=== PATIENT | male | born 1940 | race Caucasian/White ===

== ENCOUNTER 2016-03-06 07:20 | Outpatient (CLI) | payer MEDICARE, OTHER ==
[~2016-03-06] VITALS: Ht 175.3 cm; Wt 82.8 kg
--- NOTE | ~2016-03-06 | HEMODYNAMI ---
PATIENT:ABBEY BRIDGES MEDICAL RECORD: [id number] : 38 LOCATION:D.CAT ADMISSION DATE: 03/06/16 Generatedon:03/06/201610:38 Patient name: ABBEY BRIDGES Patient #: [id number] : 1940 Date of study: 03/06/2016 Page: Of Hemodynamic Procedure Report Patient Data Patient Demographics Procedure consent was obtained First Name: ABBEY Gender: Male Last Name: YULIANA : 1940 Middle Initial: CARIAL Age: 75 year(s) Patient #: [id number] Race: SSN: [id number] Additional ID: [id number] Contact details Address: [address] [place] [address] State: [place] City: [place] Zip code: [address] Past Medical History Allergies: No known allergies Admission Admission Data Admission Date: 03/06/2016 Admission Time: 7:20 Lab Results Lab Result Date: 03/02/2016 Lab Result Time: 0:00 Biochemistry Name Units Result Min Max BUN mg/dl 12 --(-*--)-- 7 18 Creatinine mg/dl 1.2 --(---*)-- 0.6 1.3 CBC Name Units Result Min Max Hemoglobin g/dl 15.1 --(-*--)-- 13.5 17.5 Procedure Procedure Types Cath Procedure PCI Procedure Coronary Stent Initial Procedure Description Procedure Date Procedure Date: 03/06/2016 Procedure Start Time: 10:25 Procedure End Time: 10:36 Procedure Staff Name Function Osito Salinas MD Performing Physician Faye Lieberman RT Scrub Heide Grant RN Nurse Vadim Vargas RT Pulmonary Care Nurse Marion Rodas RT Monitor Procedure Data Cath Procedure Fluoroscopy Diagnostic fluoroscopy Total fluoroscopy Time: 2.5 time: 2.5 min min Diagnostic fluoroscopy Total fluoroscopy dose: 199 dose: 199 mGy mGy Contrast Material Contrast Material Type Amount (ml) Isovue 300 49 Entry Location Entry Primary Successful Side Size Upsize Upsize Entry Closure Succes sful Closure Location (Fr) 1 (Fr) 2 (Fr) Remarks Device Remarks Femoral Right 6 Fr Exoseal artery Short Estimated blood loss: 10 ml Procedure Complications No complications Procedure Medications Medication Administration Route Dosage Oxygen NC 2 l/min Benadryl I.V. 50 mg Lidocaine 2% added to field 20 Heparin Flush Bag added to field 2 bags (1000units/500ml NS) 0.9% NaCl I.V. 100 ml/hr Versed I.V. 1 mg Fentanyl I.V. 50 mcg Heparin Bolus I.V. 4000 units Versed I.V. 1 mg Fentanyl I.V. 50 mcg Hemodynamics Rest HGB: 15.1 (g/dl) Heart Rate: 55 (bpm) Snapshots Pre Cath Intra NCS Post Cath Vital Signs Time Heart Resp SPO2 NIBP (mmHg) Rhythm Pain Sedation Rate (ipm) (%) Status Level (bpm) 10:13:46 53 17 96 130/76(106) NSR 0 (11) 10(A) , No pain 10:18:04 58 15 95 115/74(105) NSR 0 (11) 10(A) , No pain 10:22:16 56 15 94 119/75(99) NSR 0 (11) 10(A) , No pain 10:26:32 54 16 97 115/65(95) NSR 0 (11) 9(A) , No pain 10:30:46 60 17 94 128/69(103) NSR 0 (11) 9(A) , No pain 10:35:00 71 18 96 121/71(100) NSR 0 (11) 9(A) , No pain 10:37:01 65 17 97 123/74(98) NSR 0 (11) 10(A) , No pain Medications Time Medication Route Dose Verified Delivered Reason Notes Effectiveness by by 10:13:09 Oxygen NC 2 Osito Rojasie used for l/min Rita Grant crop production advisor 10:13:15 Benadryl I.V. 50 mg Osiot Jaeger used for Rita Grant crop production advisor 10:19:34 Lidocaine 2% added 20ml Osito Mcneill for local to vial Rita Salinas MD anesthetic field 10:19:40 Heparin Flush added 2 Osito Osito used for Bag to bags Rita Salinas MD procedure (1000units/500ml field NS) 10:19:49 0.9% NaCl I.V. 100 Osito Buffie Per physician ml/hr Rita Grant RN 10:24:27 Versed I.V. 1 mg Osito Buffie for sedation Rita Grant RN 10:24:34 Fentanyl I.V. 50 Osito Buffie for sedation mcg Rita Grant RN 10:26:14 Versed I.V. 1 mg Osito Buffie for sedation Rita Grant RN 10:26:18 Fentanyl I.V. 50 Osito Buffie for sedation mcg Rita Grant RN 10:28:17 Heparin Bolus I.V. 4000 Osito Buffie for verifi ed units Rita Grant RN anticoagulation with dr salinas Procedure Log Time Note 9:55:48 Diagnostic Cath Status : Elective 10:08:20 ACC Patient presents with Stable Angina CCS Anginal Class 2--Slight limitation of ordinary activity. 10:08:25 Vadim WOODWARD(R) sent for patient. Start room use. 10:08:26 Time tracking: Regular hours 10:08:32 Plan of Care:Hemodynamics will remain stable., Cardiac rhythm will remain stable., Comfort level will be maintained., Respiratory function will remain adequate., Patient/ family verbilizes understanding of procedure., Procedure tolerated without complication., Recovers from procedure without complications.. 10:08:54 Patient received from Outpatients to CCL 2 Alert and oriented. Tansferred to table in Supine position. 10:08:56 Warm blankets applied, and jose hugger turned on for patient comfort. 10:08:58 Correct patient and procedure confirmed by team. 10:09:01 Signed procedure consent form obtained from patient. 10:10:41 H&P Date Dictated: 03/06/2016 Within 30 days and on chart., H&P Addendum completed by physician on day of procedure. (MUST COMPLETE FOR ALL OUTPATIENTS). 10:10:44 Pre-procedure instructions explained to patient. 10:10:46 Family in waiting room. 10:10:49 Patient NPO since Midnight. 10:11:04 Patient allergic to No known allergies 10:11:08 Is the patient allergic to Iodine/contrast media? No. 10:11:14 Is patient on blood thinner?Yes 10:11:20 ACC The patient was administered the following blood thiners within the last 24 hours: ACCPlavix 10:11:37 Patient diabetic? No. 10:11:40 Snore? Yes 10:11:45 Sleep apnea? No 10:11:49 Opens mouth fully? Yes 10:11:50 Sticks out tongue? Yes 10:11:58 Dentures? Yes out 10:12:06 Patient pain scale 0/10 ?. 10:12:30 IV patent on arrival in right forearm with 0.9% NaCl at [facility]. 10:12:36 ECG and BP/O2 sat monitors applied to patient. 10:12:37 Vital chart was started 10:12:39 Baseline sample Acquired. 10:12:46 Rhythm: sinus rhythm 10:12:48 Full Disclosure recording started 10:13:09 Oxygen 2 l/min NC was given by Heide Grant RN; used for procedure; 10:13:15 Benadryl 50 mg I.V. was given by Heide Grant RN; used for procedure; 10:16:09 Right groin area was prepped with chlora-prep and draped in sterile fashion 10:16:11 Alarms reviewed by R. N. 10:16:12 Sharps counted by scrub and verified by R.N. 10:16:14 Physician paged 10:16:16 Physician arrived 10:16:30 Use device set Femoral PCI 10:16:32 Acist Syringe opened to sterile field. 10:16:33 Acist Hand Control opened to sterile field. 10:16:33 Bag Decanter opened to sterile field. 10:16:34 Cardinal Cath Pack opened to sterile field. 10:16:35 Terumo 6Fr Aguila Sheath opened to sterile field. 10:16:35 St Abdiaziz 260cm J .035 wire opened to sterile field. 10:16:37 Merit BasixCompak Inflation Kit opened to sterile field. 10:16:38 Acist Manifold opened to sterile field. 10:16:40 Tegaderm 4 x 4 opened to sterile field. 10:16:51 Coley Whisper J 300cm 0.014 guide wire opened to sterile field. 10:19:34 Lidocaine 2% 20ml vial added to field was given by Osito Salinas MD; for local anesthetic; 10:19:40 Heparin Flush Bag (1000units/500ml NS) 2 bags added to field was given by Osito Salinas MD; used for procedure; 10::49 0.9% NaCl 100 ml/hr I.V. was given by Heide Grant RN; Per physician; ::42 --------ALL STOP TIME OUT------ 10::43 Final Timeout: patient, procedure, and site verified with staff and physician. All members of the team are in agreement. 10::45 Right groin site verified by team. 10::49 Physical assessment completed. ASA score P 2 - A patient with mild systemic disease as per Osito Salinas MD. 10::52 Sedation plan: IV Moderate Sedation Versed, Fentanyl 10:22:08 Procedure started. 10::27 Versed 1 mg I.V. was given by Heide Grant RN; for sedation; 10:24:29 Zero performed for pressure channel P1 10::34 Fentanyl 50 mcg I.V. was given by Heide Grant RN; for sedation; 10::45 Zero performed for pressure channel P1 10::53 Zero performed for pressure channel P1 10:25:10 Local anesthetic to right femoral artery with Lidocaine 2% by Osito Salinas MD.INITIAL ACCESS ONLY 10:25:22 A 6 Fr Short sheath was inserted into the Right Femoral artery 10:25:41 Medtronic Launcher 6Fr AR 2.0 guide catheter opened to sterile field. 10:26:14 Versed 1 mg I.V. was given by Heide Grant RN; for sedation; 10::18 Fentanyl 50 mcg I.V. was given by Heide Grant RN; for sedation; 10::42 PCI Cath status Elective 10::53 6 Fr AR 2 guide catheter was inserted over the wire 10:27:15 Whisper wire advanced. 10:28:17 Heparin Bolus 4000 units I.V. was given by Heide Grant RN; for anticoagulation; verified with dr salinas 10::03 Inflation Number: 1 A Medtronic Resolute 2.5 X 18 stent was prepped and advanced across the Dist RCA. The stent was deployed at 13 RIO for 0:10 (min:sec). 10:31:36 Cordis 6Fr Exoseal opened to sterile field. 10:31:53 ACC Post-intervention JUAN PABLO Flow is 3. 10:31:54 Stent catheter was removed intact over wire. 10:31:56 Wire removed. 10:31:57 Guide catheter removed. 10:32:15 Sheath removed intact; hemostasis achieved with Exoseal to the Right Femoral artery. 10:32:18 Procedure ended.(Physican Out) 10:32:30 Fluoroscopy time 02.50 minutes. 10:32:37 Fluoroscopy dose: 199 mGy 10:32:37 Flurop Dose total: 199 10:32:45 Contrast amount:Isovue 300 49ml. 10:34:57 Post-op/insertion site Right Femoral artery dressed using a 4 x 4 and Tegaderm. 10:35:00 Post Procedure Pulses reassessed and unchanged 10:35:07 Post-procedure physical assessment completed. ASA score P 2 - A patient with mild systemic disease as per Osito Salinas MD. 10:35:11 Post procedure rhythm: unchanged. 10:35:14 Estimated blood loss: 10 ml 10:35:16 Post procedure instruction explained to patient.Patient verbalizes understanding. 10:35:22 Procedure and supply charges have been captured, reviewed, submitted and are correct. 10:35:50 Procedure Complication : No complications 10:35:53 Vital chart was stopped 10:35:58 See physician's report for complete and final results. 10:36:09 Report given to Post Procedure Room. 10:36:18 Patient transfered to Post Procedure Room with Bed. 10:36:35 Procedure ended. 10:36:35 Full Disclosure recording stopped 10:36:50 End room use (Document Last) Intervention Summary Intervention Notes Time ActionType Lesion and Equipment Action# Pressure Duration Attributes Used 10:31:03 Place stent Dist RCA Medtronic 1 13 00:10 Resolute 2.5 X 18 stent Device Usage Item Name Manufacture Quantity Catalog Hospital Part Current Minimal Lot# / Number Charge Number Stock Stock Serial# Code Acist Acist 1 08577 [id number] 293400 415874 20 Syringe Medical Systems Inc Acist Hand Acist 1 83169 362412 486298 443999 5 Control Medical Systems Inc Bag Microtek 1 2002S 109655 46828 702465 5 RETC Inc. Cardinal Cardinal [address] 223249 37208 249199 5 Sportody Terumo 6Fr Terumo 1 SAT913 312244 394207 019124 [address] Abdiaz[address] St Abdiaziz 1 649292 210150 260780 431383 30 260cm J .035 wire Merit Merit 1 [id number] 879507 833479 587815 15 BasharJobs Medical Inflation Kit Acist Acist 1 11353 578542 415862 833958 5 Restore Flow Allografts Systems Inc Tegaderm 4 3M 1 1626W 385326 885673 131091 5 x 4 Coley Coley 1 [id number] 052676 429615 025387 5 Whisper J Vascular 300cm 0.014 guide wire Medtronic Medtronic 1 [id number] 596841 97619 618267 1 Launcher 6Fr AR 2.0 guide catheter Medtronic Medtronic 1 [id number] 960261 104231 7 [id number] Resolute 2.5 X 18 stent Cordis 6Fr Cardinal 1 EX600 143063 275829 866318 10 [facility] [employer] Signature Audit [place] Stage Time Signature Unsigned Intra-Procedure 03/06/2016 Marion Rodas 10:38:44 AM RT(R) Signatures Monitor : Marion Rodas Signature : RT Date : Time : [place] [id number] [facility] [place] [address]
--- NOTE | ~2016-03-06 | HEMODYNAMI ---
PATIENT:ABBEY BRIDGES MEDICAL RECORD: [id number] : 38 LOCATION:[facility] D.2118 ADMISSION DATE: 03/06/16 Generatedon:03/07/201610:35 Patient name: ABBEY BRIDGES Patient #: [id number] : 1940 Date of study: 03/07/2016 Page: Of Hemodynamic Procedure Report Patient Data Patient Demographics Procedure consent was obtained First Name: ABBEY Gender: Male Last Name: YULIANA : 1940 Middle Initial: CARIAL Age: 75 year(s) Patient #: [id number] Race: SSN: [id number] Additional ID: [id number] Contact details Address: [address] [place] [address] State: [place] City: [place] Zip code: [address] Past Medical History Allergies: No known allergies Admission Admission Data Admission Date: 03/06/2016 Admission Time: 7:20 Arrival Date: 03/06/2016 Arrival Time: 7:20 Admit Source: Other Insurance Payor: Medicare Room #: D.2118 Height (in.): 69 BSA: 2.11 (m2) Height (cm.): 175.26 BMI: 31.01 (kg/m2) Weight (lbs.): 210 Weight (kg.): 95.25 Lab Results Lab Result Date: 03/07/2016 Lab Result Time: 0:00 Biochemistry Name Units Result Min Max BUN mg/dl 14 --(--*-)-- 7 18 Creatinine mg/dl 1.1 --(--*-)-- 0.6 1.3 CBC Name Units Result Min Max Hemoglobin g/dl 15.4 --(-*--)-- 13.5 17.5 Procedure Procedure Types Cath Procedure PCI Procedure Coronary Stent Initial Procedure Description Procedure Date Procedure Date: 03/07/2016 Procedure Start Time: 10:22 Procedure End Time: 10:33 Procedure Staff Name Function Osito Salinas MD Performing Physician Marion WOODWARD Scrub Ruchi Orellana RN Nurse Faye Lieberman RT Monitor Indication Angina Procedure Data Cath Procedure Fluoroscopy Diagnostic fluoroscopy Total fluoroscopy Time: 2.7 time: 2.7 min min Diagnostic fluoroscopy Total fluoroscopy dose: dose: 197.69 mGy 197.69 mGy Contrast Material Contrast Material Type Amount (ml) Isovue 370 48 Entry Location Entry Primary Successful Side Size Upsize Upsize Entry Closure Succes sful Closure Location (Fr) 1 (Fr) 2 (Fr) Remarks Device Remarks Femoral Left 6 Fr Vascade artery Short Closure System Estimated blood loss: 5 ml Procedure Complications No complications Procedure Medications Medication Administration Route Dosage Oxygen NC 2 l/min Heparin Flush Bag added to field 2 bags (1000units/500ml NS) Lidocaine 2% added to field 20 Versed I.V. 1 mg Fentanyl I.V. 50 mcg Versed I.V. 1 mg Fentanyl I.V. 50 mcg Heparin Bolus I.V. 4000 units Hemodynamics Rest BSA: 2.11 (m2) HGB: 15.4 (g/dl) O2 Consumption: Estimated: 228.02 (ml/min) O2 Co nsumption indexed: Estimated:108.07 (ml/min/m) Heart Rate: 52 (bpm) Snapshots Pre Cath Intra NCS Post Cath Vital Signs Time Heart Resp SPO2 NIBP (mmHg) Rhythm Pain Sedation Rate (ipm) (%) Status Level (bpm) 10:03:03 49 16 99 145/80(120) SB 0 (11) 10(A) , No pain 10:07:29 51 14 98 150/80(123) SB 0 (11) 10(A) , No pain 10:11:47 50 16 97 144/76(117) SB 0 (11) 10(A) , No pain 10:16:01 50 16 96 133/83(111) SB 0 (11) 10(A) , No pain 10:20:17 53 18 96 136/83(107) SB 0 (11) 10(A) , No pain 10:24:33 53 16 97 151/99(118) SB 0 (11) 9(A) , No pain 10:28:55 50 16 96 142/77(111) SB 0 (11) 9(A) , No pain 10:33:30 52 17 97 149/88(110) SB 0 (11) 9(A) , No pain Medications Time Medication Route Dose Verified Delivered Reason Notes Effectiveness by by 10:02:01 Oxygen NC 2 Osito Ruchi Per physician l/min Rita Orellana RN 10:02:11 Heparin Flush added 2 Osito Mcneill used for Bag to bags Rita Salinas MD procedure (1000units/500ml field NS) 10:02:17 Lidocaine 2% added 20ml Osito Mcneill used for to vial Rita Salinas MD procedure field 10:19:08 Versed I.V. 1 mg Osito Ruchi for sedation Rita Orellana RN 10:19:14 Fentanyl I.V. 50 Osito Ruchi for sedation mcg Rita Orellana RN 10:22:13 Versed I.V. 1 mg Osito Ruchi for sedation Rita Orellana RN 10:22:16 Fentanyl I.V. 50 Osito Ruchi for sedation mcg Rita Orellana RN 10:23:30 Heparin Bolus I.V. 4000 Osito Ruchi for dose units Rita Orellana RN anticoagulation verified wtih dr salinas Procedure Log Time Note 9:40:39 Marion Rodas RT(R) sent for patient. Start room use. 9:51:02 Informed consent obtained and on chart 9:51:08 Diagnostic Cath Status : Elective 9:51:33 Indication : Angina 9:53:31 Arrival Date: 03/06/2016 7:20:00 AM 9:53:39 Insurance Payor : Medicare 9:53:40 Admit Source: Other 9:54:32 Lab Result : Hemoglobin 15.4 g/dl 9:54:32 Lab Result : BUN 14 mg/dl 9:54:32 Lab Result : Creatinine 1.1 mg/dl 9:54:50 Time tracking: Regular hours 9:54:55 Plan of Care:Hemodynamics will remain stable., Cardiac rhythm will remain stable., Comfort level will be maintained., Respiratory function will remain adequate., Patient/ family verbilizes understanding of procedure., Procedure tolerated without complication., Recovers from procedure without complications.. 9:55:01 Patient received from Med II to CCL 2 Alert and oriented. Tansferred to table in Supine position. 9:55:03 Warm blankets applied, and jose hugger turned on for patient comfort. 9:55:04 Correct patient and procedure confirmed by team. 9:55:05 ECG and BP/O2 sat monitors applied to patient. 10:01:46 Vital chart was started 10:02:01 Oxygen 2 l/min NC was given by Ruchi Orellana RN; Per physician; 10:02:11 Heparin Flush Bag (1000units/500ml NS) 2 bags added to field was given by Osito Salinas MD; used for procedure; 10:02:17 Lidocaine 2% 20ml vial added to field was given by Osito Salinas MD; used for procedure; 10:03:58 Baseline sample Acquired. 10:04:01 Rhythm: sinus rhythm 10:04:03 Full Disclosure recording started 10:04:08 H&P Date Dictated: 03/06/2016 Within 30 days and on chart.. 10:04:09 Pre-procedure instructions explained to patient. 10:04:10 Pre-op teaching completed and patient verbalized understanding. 10:04:11 Family in waiting room. 10:04:12 Patient NPO since Midnight. 10:04:18 Is the patient allergic to Iodine/contrast media? No. 10:04:20 Was the patient premedicated? No 10:04:21 Is patient on blood thinner?Yes 10:04:23 ACC The patient was administered the following blood thiners within the last 24 hours: ACCPlavix 10:04:53 Patient diabetic? No. 10:04:56 Previous problem with sedation/anesthesia? No ? 10:05:03 Snore? Yes 10:05:04 Sleep apnea? No 10:05:05 Deviated septum? No 10:05:07 Opens mouth fully? Yes 10:05:08 Sticks out tongue? Yes 10:05:14 Airway obstruction? No ? 10:05:20 Dentures? Yes out 10:07:20 Pre procedure: right dorsailis pedis pulse 1+ Palpable, but thready & weak; easily obliterated 10:07:23 Patient pain scale 0/10 ?. 10:07:29 IV patent on arrival in left forearm with 0.9% NaCl at [facility]. 10:07:34 Lab results completed and on chart. 10:07:51 Left groin area was prepped with chlora-prep and draped in sterile fashion 10:07:52 Alarms reviewed by R. N. 10:07:53 Sharps counted by scrub and verified by R.N. 10:11:36 Zero performed for pressure channel P1 10:11:42 Zero performed for pressure channel P1 10:11:52 Zero performed for pressure channel P1 10:15:23 Use device set Femoral PCI 10:15:25 Acist Syringe opened to sterile field. 10:15:25 Acist Hand Control opened to sterile field. 10:15:26 Bag Decanter opened to sterile field. 10:15:26 Cardinal Cath Pack opened to sterile field. 10:15:27 Terumo 6Fr [place] Sheath opened to sterile field. 10:15:27 St Abdiaziz 260cm J .035 wire opened to sterile field. 10:15:28 Merit BasixCompak Inflation Kit opened to sterile field. 10:15:47 Acist Manifold opened to sterile field. 10:15:48 Tegaderm 4 x 4 opened to sterile field. 10:18:19 Physician arrived 10:18:20 --------ALL STOP TIME OUT------ 10:18:20 Final Timeout: patient, procedure, and site verified with staff and physician. All members of the team are in agreement. 10:18:24 Left groin site verified by team. 10:18:28 Physical assessment completed. ASA score P 2 - A patient with mild systemic disease as per Osito Salinas MD. 10:18:32 Sedation plan: IV Moderate Sedation Versed, Fentanyl 10:18:59 Cordis 6FR XBLAD 3.5 guide catheter opened to sterile field. 10:19:00 Coley Whisper J 300cm 0.014 guide wire opened to sterile field. 10:19:08 Versed 1 mg I.V. was given by Ruchi Orellana RN; for sedation; 10:19:14 Fentanyl 50 mcg I.V. was given by Ruchi Orellana RN; for sedation; 10:22:13 Versed 1 mg I.V. was given by Ruchi Orellana RN; for sedation; 10:22:16 Fentanyl 50 mcg I.V. was given by Ruchi Orellana RN; for sedation; 10:22:38 Procedure started. 10:22:43 Local anesthetic to left femerol artery with Lidocaine 2% by Osito Salinas MD.INITIAL ACCESS ONLY 10:22:55 A 6 Fr Short sheath was inserted into the Left Femoral artery 10:23:12 6 Fr xblad 3.5 guide catheter was inserted over the wire 10:23:30 Heparin Bolus 4000 units I.V. was given by Ruchi Orellana RN; for anticoagulation; dose verified [facility] dr salinas 10:24:32 whisper wire advanced. 10:24:59 Coley Whisper J 300cm 0.014 guide wire opened to sterile field. 10:26:15 one wire down lad, one down diag 10:26:39 Inflation number: 1 A [place] 2.0 X 15 balloon was prepped and advanced across the 1st Diag, then inflated to 11 RIO for 0:10 (min:sec). 10:28:40 Inflation Number: 1 A [place]u [place] Resolute 2.25 X 18 Stent was prepped and advanced across the 1st Diag. The stent was deployed at 11 RIO for 0:10 (min:sec). 10:30:23 Both wires removed 10:30:43 Stent catheter was removed intact over wire. 10:30:44 Guide catheter removed. 10:30:56 Vascade 6/7 Fr Closure Device opened to sterile field. 10:31:29 Sheath removed intact; hemostasis achieved with Vascade Closure System to the Left Femoral artery. 10:31:34 Procedure ended.(Physican Out) 10:31:57 Fluoroscopy time 02.70 minutes. 10:32:04 Fluoroscopy dose: 197.69 mGy 10:32:04 Flurop Dose total: 197.69 10:32:30 Contrast amount:Isovue 370 48ml. 10:32:32 Sharps counted by scrub and verified by R.N. 10:32:33 Insertion/operative site no bleeding no hematoma. 10:32:36 Post-op/insertion site Left Femoral artery dressed using a 4 x 4 and Tegaderm. 10:32:42 Post left femerol artery:stable 10:32:43 Post Procedure Pulses reassessed and unchanged 10:32:46 Post procedure rhythm: unchanged. 10:32:49 Estimated blood loss: 5 ml 10:32:50 Post procedure instruction explained to patient.Patient verbalizes understanding. 10:32:51 Patient needs reinforcement of post procedure teaching. 10:33:00 Procedure type changed to Cath procedure, PCI procedure, Coronary Stent Initial 10:33:01 Procedure and supply charges have been captured, reviewed, submitted and are correct. 10:33:11 Procedure Complication : No complications 10:33:13 Vital chart was stopped 10:33:14 See physician's report for complete and final results. 10:33:20 Report given to [facility]. 10:33:23 Patient transfered to [facility] II with Stretcher. 10:33:25 Procedure ended. 10:33:25 Full Disclosure recording stopped 10:33:33 ACC-PCI Only Patient was given prescriptions, or instructed by Osito Salinas MD to start/continue the following medications upon discharge: Plavix 10:33:35 End room use (Document Last) 10:35:23 Patient Height : 175.26 cm 10:35:27 Patient Weight : 95.25 kg Intervention Summary Intervention Notes Time ActionType Lesion and Equipment Action# Pressure Duration Attributes Used 10:26:39 Inflate 1st Diag [place] 1 11 00:10 balloon Sci [place] 2.0 X 15 balloon 10:28:40 [address] stent 1st Diag Medtronic 1 11 00:10 Resolute 2.25 X 18 Stent Device Usage Item Name Manufacture Quantity Catalog Number Hospital Part Current Mini mal Lot# / Charge Number Stock Stock Serial# Code Acist Acist 1 66363 236262 438755 [id number] 20 Syringe Medical Systems Inc Acist Hand Acist 1 34740 054627 545831 108929 5 Control Medical Systems Inc Bag Microtek 1 2002S 640229 42972 004649 5 Universal Robotics Medical Inc. Cardinal Cardinal 1 [id number] 349951 78739 196831 5 Cath Pack Health Terumo 6Fr Terumo 1 [id number] 159139 992617 890696 [address] Abdiaziz 1 974289 336992 546326 760770 30 260cm J .035 wire Merit Merit 1 [id number] 590505 308323 894785 15 [email or web address] Medical Inflation Kit Acist Acist 1 17097 263737 174575 993418 5 Manifold Medical Systems Inc Tegaderm 4 3M 1 1626W 626178 314405 881910 5 x 4 Cordis 6FR Cardinal 1 [id number] 513703 730964 828978 10 XBLAD 3.5 Health guide catheter Coley Coley 2 [id number] 194109 440592 398011 5 Whisper J Vascular 300cm 0.014 guide wire [place] Sci Arvada 1 [id number] 782109 717065 562888 1 [id number] Network Physics 2.0 X 15 balloon Medtronic Medtronic 1 [id number] 215269 508603 4 [id number] Resolute 2.25 X 18 Stent Vascade 08/08 Cardiva 1 [id number] 203620 992464 025156 5 Fr Closure Medical, Device Inc. Signature Audit [place] Stage Time Signature Unsigned Intra-Procedure 03/07/2016 Faye Lieberman 10:35:45 AM RT(R) Signatures Monitor : Faye Lieberman RT Signature : Date : Time : [id number] [place] [address]
[~2016-03-06 07:20] MED LIST: BAYER CHEWABLE81 MG PO; COZAAR100 MG PO; HYTRIN10 MG PO; NIFEDIPINE ER30 MG; OMEPRAZOLE20 M1 PO
[2016-03-06 07:56] LABS: BASOPHILS 0.2 % (0.0-2.0); EOSINOPHILS 2.5 % (0-7); HEMOGLOBIN 15.4 g/dL (13.5-17.5); IMMATURE GRANULOCYTES 0.1 % (0-5); LYMPHOCYTES 27.2 % (15-50); MCH 29.1 pg (26.0-34.0); MCHC 32.8 g/dL (31.0-37.0); MCV 88.8 fL (80.0-100.0); MEAN PLATELET VOLUME 11.3 fL (7.4-10.4); MONOCYTES 7.9 % (2-11); NEUTROPHILS 62.1 % (40-80); PLATELET COUNT 196 10x3/uL (130-400); RBC 5.29 10x6/uL (4.20-6.10); RDW 14.7 % (11.5-14.5); WBC 8.4 10x3/uL (4.8-10.8)
[2016-03-06 08:01] LABS: ANION GAP 11.4 mmol/L (8-16); CALCIUM 9.2 mg/dL (8.5-10.1); CREATININE - SERUM 1.1 mg/dL (0.6-1.3); POTASSIUM - SERUM 4.4 mmol/L (3.5-5.1)
[2016-03-06] MEDS ORDERED: PLAVIX75 MG PO (09:26)
[2016-03-06 09:30] VITALS: BP 128/68; BMI 31.0
[2016-03-06 09:44] VITALS: BP 128/68; BMI 31.0
[2016-03-06 11:03] VITALS: BP 117/66; Ht 175.3 cm; Wt 82.8 kg
[2016-03-06 12:00] VITALS: BP 117/66
--- NOTE | 2016-03-06 13:00 | NUR ---
PT IS ALERT. NO SS OF DISTRESS AT THIS TIME. WILL CONTINUE TO MONTIOE.
[2016-03-06 15:44] VITALS: BP 131/67
[2016-03-06 20:33] VITALS: BP 157/68
[2016-03-07 00:32] VITALS: BP 133/72
[2016-03-07 04:42] VITALS: BP 118/64
--- NOTE | 2016-03-07 06:12 | NUR ---
PT ASSESSMENT COMPLETED PT LAYING IN BED WITH FAMILY IN ROOM AT BEDSIDE RIGHT GROIN ASSESSED NO HEMOTOMA NOTED OR OBSERVED DRESSING C/D/I AND CANSENTS FOR CATH IN AM TO CHART CALLL LIGHT IN REACH SRX2 BED LOW AND LOCKED WILL MONITOR
[2016-03-07 08:00] VITALS: BP 127/69
--- NOTE | 2016-03-07 09:47 | NUR ---
PRE-OPS GIVEN. TO HAND BRAILLE TRANSCRIBER BY BED.
--- NOTE | 2016-03-07 10:54 | NUR ---
BACK FROM MANAGER OF CREATIVE SERVICES. VS WNL. LEFT GROIN STABLE WITHOUT BLEEDING OR HEMATOMA NOTED. WILL MONITOR.
[2016-03-07 12:00] VITALS: BP 131/70
--- NOTE | 2016-03-07 14:37 | NUR ---
IV AND TELEMETRY DCD. BR UP. GROIN STABLE. DC PLANS GIVEN. UNDERSTANDING VOICED. ESCORTED TO CAR BY W/C.
--- NOTE | 2016-03-08 16:23 | DS ---
PATIENT:ABBEY WATSON :38 MEDICAL RECORD: [id number] DISCHARGE SUMMARY ADMISSION DATE: 03/06/16 DISCHARGE DATE: 03/07/16 DATE OF DISCHARGE: 03/07/2016 DIAGNOSES: 1. Angina. 2. Coronary artery disease. 3. Percutaneous transluminal coronary angioplasty stent of the right coronary artery and left anterior descending this admission. 4. Hypertension. 5. Hyperlipidemia. HOSPITAL COURSE: Mr. Watson presents with unstable anginal symptomatology last week. He was found to have 3-vessel coronary artery disease. He underwent successful PTCA stent of the left circumflex last week, now brought back for PTCA stent of the LAD and RCA in a staged fashion. He had these done uneventfully with no further angina. He was discharged home with no change in medications as he is already on aspirin and Plavix. We will follow up with [facility] in 1 month. TRANSINT:[id number] Voice Confirmation ID: [id number] DOCUMENT ID: [id number] HOA HURTADO MD at 1623 CC: [id number] DICTATION DATE: 03/07/16 1034 MILK DELIVERER: 03/07/16 7385 DEP CLI 03/07/16 [id number] [place] [address]
--- NOTE | 2016-03-08 16:23 | OP ---
PATIENT NAME: ABBEY BRIDGES MEDICAL RECORD: [id number] :38 LOCATION:D.CAT ADMISSION DATE: SURGEON: HOA HURTADO MD DATE OF OPERATION: 03/07/2016 PROCEDURES: 1. PTCA stent, LAD diagonal. 2. Selective coronary angiography. INDICATION: Angina and coronary artery disease. PROCEDURE IN DETAIL: After informed consent was obtained and after detailed explanation of risks, benefits as well as alternative therapies, the patient elected to proceed with angiogram and angioplasty. The left femoral area was prepped and draped in normal sterile fashion. Left femoral artery was cannulated via modified Seldinger technique with placement of 6-Kyrgyz sheath. All catheters exchanged through this sheath. FINDINGS: The left anterior descending diagonal has a 95% stenosis. This was addressed with a 2.25 x 18 mm Resolute stent. Result was 0% residual stenosis. OVERALL IMPRESSION: Successful percutaneous transluminal coronary angioplasty stent of the left anterior descending diagonal going from 95% initial stenosis to 0% residual. TRANSINT:[id number] Voice Confirmation ID: [id number] DOCUMENT ID: [id number] HOA HURTADO MD at 1623 CC: [id number] DICTATION DATE: 03/07/16 1035 LICENSING SERVICES CLERK: 03/07/16 1153 DEP CLI 03/07/16 [address] [place] [address]
--- NOTE | 2016-03-08 16:23 | HP ---
PATIENT: ABBEY BRIDGES MEDICAL RECORD: [id number] ACCOUNT: [id number] LOCATION:[facility] : 38 ADMISSION DATE: 03/06/16 HISTORY AND PHYSICAL EXAMINATION ADMITTING DIAGNOSES: 1. Angina. 2. Coronary artery disease. 3. Recent percutaneous transluminal coronary angioplasty stent of the left circumflex with concomitant disease of the right coronary artery. 4. Hypertension. HISTORY OF PRESENT ILLNESS: This is a gentleman who presents with anginal symptomatology, found to have 3-vessel coronary artery disease, underwent successful PTCA stent of the left circumflex. He is now brought back for PTCA stent of the LAD and RCA in a staged fashion. PHYSICAL EXAMINATION: GENERAL APPEARANCE: Well-nourished, well-developed, appears stated age. Level of distress, comfortable. PSYCHIATRIC: Mental status, alert, normal affect. Orientation, oriented to time, place and person. EYES: Lids and conjunctiva, noninjected. No discharge, no pallor. ENT: Lips, teeth, gums, normal dentition. Oropharynx, no cyanosis, no pallor. NECK: Carotid arteries, bilateral normal upstroke, no bruits, no thrills. JUGULAR VEINS: No jugular venous pressure or distention. CERVICAL LYMPH NODES: Nontender, nonenlarged. THYROID: Not enlarged. Nontender. No nodules. LUNGS: Respiratory effort, unlabored. CHEST: Normal curvature. No thoracic deformity. No chest wall tenderness. Percussion, resonant. Auscultation, clear. No wheezes, no rales, no rhonchi. CARDIOVASCULAR: Precordial exam, nondisplaced. No heaves or pericardial thrills. Rate and rhythm, regular. Heart sounds, normal S1, normal S2. No S3, no gallop, no rub. Systolic murmur, not heard. Diastolic murmur, not heard. EXTREMITIES: No cyanosis, no edema. Peripheral pulses, full and equal in all extremities, except as noted. No bruits appreciated. ABDOMEN: Soft, nondistended. Normal aorta. No bruit. Nontender. No masses. Liver, nontender, no hepatomegaly. Spleen, nontender, no splenomegaly. MUSCULOSKELETAL: No joint tenderness. No joint swelling. No erythema. NEUROLOGICAL: Normal gait, normal strength, normal tone. SKIN: Warm and dry. REVIEW OF SYSTEMS: The patient reports easy bruising but reports no swollen glands. The patient reports no fever, no night sweats, no significant weight gain, no significant weight loss. No significant exercise tolerance. The patient reports no dry eyes, no irritation, no vision change. Patient reports no difficulty hearing and no ear pain. Patient reports no frequent nose bleeds or nose and sinus problems. Patient reports on arm pain on exertion. No shortness of breath while lying down. No history of heart murmur. Patient reports no cough, no wheezing or coughing up blood. Patient reports no abdominal pain, no vomiting. Normal appetite. No diarrhea and not vomiting blood. No nausea and no constipation. Patient reports no incontinence. No difficulty urinating. No hematuria. No increased frequency. Patient reports no muscle aches. No weakness, no arthralgias, no back pain. No swelling of the extremities. Patient reports no abnormal mole, no jaundice, no rashes. Reports HISTORY AND PHYSICAL [id number] YULIANA,ABBEY no loss of consciousness. No weakness and no numbness. No seizures, dizziness, or headaches. The patient reports no depression, no sleep disturbance, feeling safe in a relationship and no alcohol abuse. Patient reports on fatigue. Reports no runny nose or sinus pressure. No itching, no hives, and no frequent sneezing. OVERALL IMPRESSION: Anginal symptomatology with 2-vessel coronary artery disease. We will proceed with percutaneous transluminal coronary angioplasty stent of the left anterior descending and right coronary artery. TRANSINT:[id number] Voice Confirmation ID: [id number] DOCUMENT ID: [id number] HOA HURTADO MD at 1623 CC: [id number] DICTATION DATE: 03/06/16910 PERSONAL HEALTH COACH: 03/06/1625 DEP CLI 03/07/16 [facility] [address] [place] [address]
--- NOTE | 2016-03-08 16:23 | OP ---
PATIENT NAME: ABBEY BRIDGES MEDICAL RECORD: [id number] :38 LOCATION:D.CAT ADMISSION DATE: SURGEON: HOA HURTADO MD DATE OF OPERATION: 03/06/2016 PROCEDURES: 1. PTCA stent, RCA. 2. Selective coronary angiography. INDICATION: Angina and coronary artery disease. PROCEDURE IN DETAIL: After informed consent was obtained and after a detailed explanation of risks, benefits as well as alternative therapies, the patient elected to proceed with angiogram and angioplasty. The right femoral area was prepped and draped in normal sterile fashion. The right femoral artery was cannulated via modified Seldinger technique with placement of 6-Korean sheath. All catheters exchanged through this sheath. FINDINGS: The right coronary has 80% stenosis at the distal vessel. This was addressed with a 2.5 x 18 mm Resolute. Result was 0% residual stenosis. OVERALL IMPRESSION: Successful percutaneous transluminal coronary angioplasty stent of the right coronary artery going from 80% initial stenosis to 0% residual. TRANSINT:[id number] Voice Confirmation ID: [id number] DOCUMENT ID: [id number] HOA HURTADO MD at 1623 CC: [id number] DICTATION DATE: 03/06/16 1038 ARCHITECTURAL DRAFTSMAN: 03/06/16 1043 DEP CLI 03/07/[address] [address]
== END 2016-03-07 14:41 | disposition home or self-care (01) ==
LOC: D.M2 07:20 → D.CATH 07:20 → D.M2 10:48 → D.CATH 03-07 14:41
PROVIDERS: Internal Medicine Interventional Cardiology
DX: I25.119 Atherosclerotic heart disease of native coronary artery with unspecified angina pectoris (principal); Z95.5 Presence of coronary angioplasty implant and graft; I10 Essential (primary) hypertension
CPT/HCPCS: C9600 ×2

== ENCOUNTER → 2016-06-01 10:20 | Outpatient (CLI) | payer MEDICARE, OTHER ==
[2016-03-06 11:03] VITALS: BMI 26.9
--- NOTE | ~2016-06-01 | HEMODYNAMI ---
PATIENT:ABBEY BRIDGES MEDICAL RECORD: [id number] : 38 LOCATION:[facility] ADMISSION DATE: 06/01/16 Generatedon:06/01/201614:38 Patient name: ABBEY BRIDGES Patient #: [id number] : 1940 Date of study: 06/01/2016 Page: Of Hemodynamic Procedure Report Patient Data Patient Demographics Procedure consent was obtained First Name: ABBEY Gender: Male Last Name: YULIANA : 1940 [facility] Initial: C Age: 76 year(s) Patient #: [id number] Race: SSN: [id number] Additional ID: [id number] Contact details Address: [address] [place] [address] State: [place] City: [place] Zip code: [address] Past Medical History Allergies: No known allergies Admission Admission Data Admission Date: 06/01/2016 Admission Time: 10:20 Arrival Date: 06/01/2016 Arrival Time: 10:20 Admit Source: Other Insurance Payor: Medicare Height (in.): 69 BSA: 2.11 (m2) Height (cm.): 175.26 BMI: 31.16 (kg/m2) Weight (lbs.): 211 Weight (kg.): 95.71 Lab Results Lab Result Date: 06/01/2016 Lab Result Time: 0:00 Biochemistry Name Units Result Min Max BUN mg/dl 16 --(---*)-- 7 18 Creatinine mg/dl 1 --(--*-)-- 0.6 1.3 CBC Name Units Result Min Max Hemoglobin g/dl 15.3 --(-*--)-- 13.5 17.5 Procedure Procedure Types Cath Procedure Diagnostic Procedure [facility] w/Coronaries PCI Procedure Coronary Stent Initial Miscellaneous Procedures Moderate Sedation up to 45 minutes Procedure Description Procedure Date Procedure Date: 06/01/2016 Procedure Start Time: 14:22 Procedure End Time: 14:33 Procedure Staff Name Function Osito Salinas MD Performing Physician Vadim Vargas RT Scrub Magdalena Hummel RN Nurse Faye Lieberman RT Monitor Procedure Data Cath Procedure Fluoroscopy Diagnostic fluoroscopy Total fluoroscopy Time: 1.9 time: 1.9 min min Diagnostic fluoroscopy Total fluoroscopy dose: 504 dose: 504 mGy mGy Contrast Material Contrast Material Type Amount (ml) Isovue 370 75 Entry Location Entry Primary Successful Side Size Upsize Upsize Entry Closure Reed ccessful Closure Location (Fr) 1 (Fr) 2 (Fr) Remarks Device Remarks Radial Right 6 Fr Mechanical artery Short Compression Estimated blood loss: 5 ml Diagnostic catheters Device Type Used For End Catheter Placement Terumo Optitorque 5Fr LV Angiography Waldo 4.5 catheter Procedure Complications No complications Procedure Medications Medication Administration Route Dosage Oxygen NC 2 l/min Heparin Flush Bag added to field 2 bags (1000units/500ml NS) Lidocaine 2% added to field 20 Radial Cocktail added to field 1 syringe (Verapomil 2mg/Nitro 400mcg/Heparin 1500units) Fentanyl I.V. 50 mcg Versed I.V. 1 mg Radial Cocktail I.A. 1 syringe (Verapomil 2mg/Nitro 400mcg/Heparin 1500units) Fentanyl I.V. 25 mcg Versed I.V. 0.5 mg Heparin Bolus I.V. 4000 units Hemodynamics Rest BSA: 2.11 (m2) HGB: 15.3 (g/dl) O2 Consumption: Estimated: 228.12 (ml/min) O2 Co nsumption indexed: Estimated:108.11 (ml/min/m) Heart Rate: 53 (bpm) Pressure Samples Time Site Value (mmHg) Purpose Heart Use Rate(bpm) 14:24 LV 94/10,12 Snapshot 59 Snapshots Pre Cath Intra NCS Post Cath Vital Signs Time Heart Resp SPO2 NIBP (mmHg) Rhythm Pain Sedation Rate (ipm) (%) Status Level (bpm) 14:11:38 52 19 94 150/79(105) NSR 0 (11) 10(A) , No pain 14:15:58 52 17 96 140/76(109) NSR 0 (11) 10(A) , No pain 14:20:14 51 16 97 142/78(116) NSR 0 (11) 9(A) , No pain 14:24:22 56 18 95 111/64(95) NSR 0 (11) 9(A) , No pain 14:28:34 55 19 96 124/70(95) NSR 0 (11) 9(A) , No pain 14:32:48 58 18 96 127/72(98) NSR 0 (11) 9(A) , No pain Medications Time Medication Route Dose Verified Delivered Reason Note s Effectiveness by by 14:12:56 Oxygen NC 2 l/min Magdalena Magdalena used for Hummel Hummel speeder worker RN 14:13:06 Heparin Flush added 2 bags Magdalena Magdalena used for Bag to Hummel Hummel procedure (1000units/500ml field RN RN NS) 14:13:12 Lidocaine 2% added 20ml Magdalena Magdalena used for to vial Hummel Hummel procedure field RN RN 14:13:20 Radial Cocktail added 1 Magdalena Magdalena used for (Verapomil to syringe Hummel Hummel procedure 2mg/Nitro field RN RN 400mcg/Heparin 1500units) 14:21:39 Fentanyl I.V. 50 mcg Magdalena Magdalena for sedation Hummelmary Hummel RN RN 14:21:45 Versed I.V. 1 mg Magdalena Magdalena for sedation Hummel Estephanie RN RN 14:23:32 Radial Cocktail I.A. 1 Magdalena Osito for (Verapomil syringe Hummel Rita MD vasodilation 2mg/Nitro RN 400mcg/Heparin 1500units) 14:23:37 Fentanyl I.V. 25 mcg Magdalena Magdalena for sedation Hummelmary Hummel RN RN 14:23:42 Versed I.V. 0.5 mg Magdalena Magdalena for sedation Hummel Hummel RN RN 14:28:31 Heparin Bolus I.V. 4000 Magdalena Magdalena for units Hummel Hummel anticoagulation RN neon sign servicer Log Time Note 13:59:08 Informed consent obtained and on chart 13:59:15 Admit Source: Other 13:59:21 Arrival Date: 06/01/2016 10:20:00 AM 13:59:31 Insurance Payor : Medicare 13:59:52 Lab Result : Hemoglobin 15.3 g/dl 13:59:52 Lab Result : Creatinine 1 mg/dl 13:59:52 Lab Result : BUN 16 mg/dl 13:59:57 Diagnostic Cath Status : Elective 14:00:30 Magdalena Hummel RN sent for patient. Start room use. 14:00:31 Time tracking: Regular hours 14:00:35 Plan of Care:Hemodynamics will remain stable., Cardiac rhythm will remain stable., Comfort level will be maintained., Respiratory function will remain adequate., Patient/ family verbilizes understanding of procedure., Procedure tolerated without complication., Recovers from procedure without complications.. 14:02:24 Patient received from ED to CCL 2 Alert and oriented. Tansferred to table in Supine position. 14:02:25 Warm blankets applied, and jose hugger turned on for patient comfort. 14:02:25 Correct patient and procedure confirmed by team. 14:02:26 ECG and BP/O2 sat monitors applied to patient. 14:10:12 Vital chart was started 14:12:56 Oxygen 2 l/min NC was administered by Magdalena Hummel RN; used for procedure; 14:13:06 Baseline sample Acquired. 14:13:06 Heparin Flush Bag (1000units/500ml NS) 2 bags added to field was administered by Magdalena Hummel RN; used for procedure; 14:13:12 Lidocaine 2% 20ml vial added to field was administered by Magdalena Hummel RN; used for procedure; 14:13:20 Radial Cocktail (Verapomil 2mg/Nitro 400mcg/Heparin 1500units) 1 syringe added to field was administered by Magdalena Hummel RN; used for procedure; 14:13:23 Rhythm: sinus rhythm 14:13:25 Full Disclosure recording started 14:13:29 H&P Date Dictated: 06/01/2016 New H&P dictated by physician.. 14:13:30 Pre-procedure instructions explained to patient. 14:13:31 Pre-op teaching completed and patient verbalized understanding. 14:13:32 Family in waiting room. 14:13:33 Patient NPO since Midnight. 14:13:38 Is the patient allergic to Iodine/contrast media? No. 14:13:41 Was the patient premedicated? No 14:14:56 Is patient on blood thinner?Yes 14:14:59 ACC The patient was administered the following blood thiners within the last 24 hours: ACCPlavix 14:15:01 Patient diabetic? No. 14:15:04 Previous problem with sedation/anesthesia? No ? 14:15:05 Snore? Yes 14:15:06 Sleep apnea? No 14:15:07 Deviated septum? No 14:15:07 Opens mouth fully? Yes 14:15:08 Sticks out tongue? Yes 14:15:10 Airway obstruction? No ? 14:15:14 Dentures? Yes in tight 14:15:18 Pre procedure: right dorsailis pedis pulse 1+ Palpable, but thready & weak; easily obliterated 14:15:21 Patient pain scale 0/10 ?. 14:15:24 Modified Olaf's test Radial < 7 seconds 14:15:30 IV patent on arrival in left antecubital with 0.9% NaCl at [facility]. 14:15:33 Lab results completed and on chart. 14:15:37 Right Radial & Right Groin area was prepped with chlora-prep and draped in sterile fashion 14:15:37 Alarms reviewed by R. N. 14:15:38 Sharps counted by scrub and verified by R.N. 14:15:39 Physician arrived 14:15:39 --------ALL STOP TIME OUT------ 14:15:41 Final Timeout: patient, procedure, and site verified with staff and physician. All members of the team are in agreement. 14:15:44 Right Radial & Left Groin site verified by team. 14:15:48 Physical assessment completed. ASA score P 2 - A patient with mild systemic disease as per Osito Salinas MD. 14:15:51 Sedation plan: IV Moderate Sedation Versed, Fentanyl 14:15:56 Use device set Radial Dx 14:15:57 Acist Syringe opened to sterile field. 14:15:57 Medline Cath Pack opened to sterile field. 14:15:58 Bag Decanter opened to sterile field. 14:15:58 Terumo 6Fr Slender Glidesheath opened to sterile field. 14:15:58 St Abdiaziz 260cm J .035 wire opened to sterile field. 14:15:59 Acist Hand Control opened to sterile field. 14:15:59 Acist Manifold opened to sterile field. 14:15:59 Tegaderm 4 x 4 opened to sterile field. 14:16:00 MBrace Wrist Support opened to sterile field. 14:21:39 Fentanyl 50 mcg I.V. was administered by Magdalena Hummel RN; for sedation; 14:21:45 Versed 1 mg I.V. was administered by Magdalena Hummel RN; for sedation; 14:22:12 Zero performed for pressure channel P1 14:22:31 Procedure started. 14:22:40 Local anesthetic to right radial artery with Lidocaine 2% by Osito Salinas MD.INITIAL ACCESS ONLY 14:22:48 A 6 Fr Short sheath was inserted into the Right Radial artery 14:23:32 Radial Cocktail (Verapomil 2mg/Nitro 400mcg/Heparin 1500units) 1 syringe I.A. was administered by Osito Salinas MD; for vasodilation; 14:23:37 Fentanyl 25 mcg I.V. was administered by Magdalena Hummel RN; for sedation; 14::42 Versed 0.5 mg I.V. was administered by Magdalena Hummel RN; for sedation; 14:24:20 A Paradigm Spine Optitorque 5Fr Waldo 4.5 catheter was advanced over the wire and used for LV Angiography. 14:24:27 LV gram done using BAUMANN 14:24:30 Injector settings: Ml/sec: 5, Volume: 15, 14:24:36 EF : 20 % 14:24:41 LCA angiography performed. 14:24:51 Injector settings: Ml/sec: 3, Volume: 6, 14:26:29 RCA angiography performed. 14:26:33 Injector settings: Ml/sec: 3, Volume: 6, 14:26:48 Medtronic Launcher 6Fr AR 1.0 guide catheter opened to sterile field. 14:26:49 Coley Whisper J 300cm 0.014 guide wire opened to sterile field. 14:26:55 1Life HealthcareixCompak Inflation Kit opened to sterile field. 14:27:02 Catheter removed. 14:27:16 6 Fr ar 1 guide catheter was inserted over the wire 14:27:32 whisper wire advanced. 14::55 Wire advanced across lesion. 14::31 Heparin Bolus 4000 units I.V. was administered by Magdalena Hummel RN; for anticoagulation; 14::39 Inflation Number: 1 A Medtronic Resolute 2.5 X 12 stent was prepped and advanced across the Dist RCA. The stent was deployed at 17 RIO for 0:10 (min:sec). 14::55 Stent catheter was removed intact over wire. 14:29:59 Wire removed. 14:30:02 Guide catheter removed. 14:31:43 Terumo TR Band Standard opened to sterile field. 14:31:52 Sheath removed intact; hemostasis achieved with Mechanical Compression to the Right Radial artery. 14:31:55 Procedure ended.(Physican Out) 14:32:10 Fluoroscopy time 01.90 minutes. 14:32:15 Fluoroscopy dose: 504 mGy 14:32:15 Flurop Dose total: 504 14:32:19 Contrast amount:Isovue 370 75ml. 14:32:20 Sharps counted by scrub and verified by R.N. 14:32:24 TR band inflated with 10cc of air. 14:32:25 Insertion/operative site no bleeding no hematoma. 14:32:29 Post right radial artery:stable 14:32:30 Post Procedure Pulses reassessed and unchanged 14:32:33 Post procedure rhythm: unchanged. 14:32:35 Estimated blood loss: 5 ml 14:32:37 Post procedure instruction explained to patient.Patient verbalizes understanding. 14:32:38 Patient needs reinforcement of post procedure teaching. 14:33:08 Procedure type changed to Cath procedure, Diagnostic procedure, LHC, LHC w/Coronaries, PCI procedure, Coronary Stent Initial, Miscellaneous Procedures, Moderate Sedation up to 45 minutes 14:33:10 Procedure and supply charges have been captured, reviewed, submitted and are correct. 14:33:14 Procedure Complication : No complications 14:33:16 Vital chart was stopped 14:33:16 See physician's report for complete and final results. 14:33:20 Report given to Pre/Post Procedure Room. 14:33:22 Patient transfered to Pre/Post Procedure Room with Stretcher. 14:33:24 Procedure ended. 14:33:24 Full Disclosure recording stopped 14:33:58 ACC-PCI Only Patient was given prescriptions, or instructed by Osito Salinas MD to start/continue the following medications upon discharge: Plavix 14:34:05 End room use (Document Last) 14:35:12 Patient Weight : 95.71 kg 14:35:20 Patient Height : 175.26 cm Intervention Summary Intervention Notes Time ActionType Lesion and Equipment Action# Pressure Duration Attributes Used 14:29:39 Place stent Dist RCA Medtronic 1 17 00:10 Resolute 2.5 X 12 stent Device Usage Item Name Manufacture Quantity Catalog Hospital Part Current Minimal Lot# / Number Charge Number Stock Stock Serial# Code Acist Acist 1 30816 664067 379589 274021 20 Syringe Medical Systems Inc Medline Cardinal 1 [id number] 719279 24517 791691 5 Cath Pack Health Bag Microtek 1 2001S [id number] 16869 298664 5 Decanter Medical Inc. Terumo 6Fr Terumo 1 [id number] 583121 866376 839687 [address] Abdiaziz St Abdiaziz 1 001398 872303 033998 257785 30 260cm J .035 wire Acist Hand Acist 1 12258 678821 944097 549530 5 Control Medical Systems Inc Acist Acist 1 64980 420287 904710 979231 5 Manifold Medical Systems Inc Tegaderm 4 3M 1 1626W 402068 062827 933758 5 x 4 MBrace Advanced 1 140-0250-00 729653 27154 002814 5 Wrist Vascular Support Dynamics Terumo Terumo 1 40-5012 373784 871252 835402 5 Optitorque 5Fr Waldo 4.5 catheter Medtronic Medtronic 1 [id number] 641749 77746 874078 1 Launcher 6Fr AR 1.0 guide catheter Coley Coley 1 [id number] 678239 608117 820262 5 Whisper J Vascular 300cm 0.014 guide wire [facility] Merit 1 [id number] 458311 933727 923588 15 BasixCompak Medical Inflation Kit Medtronic Medtronic 1 [id number] 435254 538140 6 [id number] Resolute 2.5 X 12 stent Terumo TR Terumo 1 [id number] 112731 419643 794337 40 Band Standard Signature Audit [place] Stage Time Signature Unsigned Intra-Procedure 06/01/2016 Faye Lieberman 2:38:15 PM RT(R) Signatures Monitor : Faye Lieberman RT Signature : Date : Time : [facility] [address] [place] [address]
[~2016-06-01 10:20] MED LIST changes: +PLAVIX75 MG PO
[2016-06-01 11:12] LABS: BASOPHILS 0.1 % (0.0-2.0); EOSINOPHILS 2.8 % (0-7); HEMATOCRIT 46.9 % (42.0-54.0); HEMOGLOBIN 15.3 g/dL (13.5-17.5); IMMATURE GRANULOCYTES 0.1 % (0-5); LYMPHOCYTES 34.4 % (15-50); MCH 29.3 pg (26.0-34.0); MCHC 32.6 g/dL (31.0-37.0); MCV 89.8 fL (80.0-100.0); MEAN PLATELET VOLUME 11.5 fL (7.4-10.4); MONOCYTES 7.4 % (2-11); NEUTROPHILS 55.2 % (40-80); PLATELET COUNT 224 10x3/uL (130-400); RBC 5.22 10x6/uL (4.20-6.10); RDW 13.8 % (11.5-14.5)
[2016-06-01 11:30] LABS: ALBUMIN 3.9 g/dL (3.4-5.0); ALKALINE PHOSPHATASE 71 U/L (46-116); ALT (SGPT) 28 U/L (10-68); BILIRUBIN - TOTAL 0.42 mg/dL (0.2-1.3); CALC OSMOLALITY 278 mosm/kg (275-300); CALCIUM 9.1 mg/dL (8.5-10.1); CARBON DIOXIDE 25.7 mmol/L (21.0-32.0); CHLORIDE - SERUM 106 mmol/L (98-107); GLUCOSE 101 mg/dL (74-106); POTASSIUM - SERUM 4.5 mmol/L (3.5-5.1); PROTEIN - SERUM 7.3 g/dL (6.4-8.2); SODIUM 139 mmol/L (136-145); UREA NITROGEN 16 mg/dL (7-18); eGFR NON AFRICAN AMERICAN 77 mL/min (90-120)
[2016-06-01 11:40] LABS: CKMB 1.3 U/L (0.0-3.6); CREATINE KINASE 69 UL (21-232); TROPONIN-I < 0.017 ng/mL (0.000-0.060)
[2016-06-01 12:19] LABS: MAGNESIUM - SERUM 1.9 mg/dL (1.8-2.4)
--- NOTE | 2016-06-01 18:42 | NUR ---
1500-TR BAND TO RIGHT WRIST INTACT, NO BLEEDING, CAP REFILL BRISK 1530-NO CHANGES IN TR BAND, VSS
--- NOTE | 2016-06-01 18:51 | NUR ---
1820-TR BAND OFF PER PROTOCOL- BANDAID APPLIED WITH BRACE IN USE, IV D'C WITH CATH TIP INTACT, WRITTEN AND VERBAL INSTRUCTIONS GIVEN TO PT AND . VERBAL UNDERSTANDING NOTED. 1830-D'C VIA WC TO PRIVATE CAR, DENIES FURTHUR NEEDS
--- NOTE | 2016-06-15 10:19 | OP ---
PATIENT NAME: ABBEY BRIDGES MEDICAL RECORD: [id number] :38 LOCATION:[facility] ADMISSION DATE: SURGEON: HOA HURTADO MD DATE OF OPERATION: 06/01/2016 PROCEDURES: 1. PTCA stent RCA. 2. Left heart catheterization. 3. Selective coronary angiography. 4. Left ventriculogram. INDICATION: Angina and coronary artery disease. PROCEDURE: After informed consent was obtained and after detailed explanation of risks, benefits as well as alternative therapies, the patient elected to proceed with angiogram and angioplasty. The right femoral area is prepped and draped in normal sterile fashion. The right femoral artery was cannulated via modified Seldinger technique with placement of 6-Congolese sheath. All catheters exchanged through this sheath. FINDINGS: The left ventriculogram was performed in standard 30-degree BAUMANN view, reveals good cardiac wall motion throughout all segments. Overall ejection fraction estimated 60%. SELECTIVE CORONARY ANGIOGRAPHY: 1. Left main is with no significant angiographic disease. 2. Left anterior descending has previously placed stents, these are widely patent. There is disease in the LAD diagonal, but this is unchanged from previous angiography. 3. Left circumflex has moderate irregularities, but no flow-limiting stenosis. Previously placed stents were widely patent. 4. The right coronary has previously placed stent. This is widely patient; however, there 70%-80% stenosis distally. This is changed from previous angiography. PTCA STENT OF THE RCA: The stent used was a 2.5 x 12 mm Resolute. Result was 0% residual stenosis. OVERALL IMPRESSION: Successful percutaneous transluminal coronary angioplasty stent of the right coronary artery going from 70%-80% initial stenosis to 0% residual. TRANSINT:[id number] Voice Confirmation ID: [id number] DOCUMENT ID: [id number] HOA HURTADO MD at 1019 CC: [id number] DICTATION DATE: 06/01/16 1433 MILL LABORER: 06/01/16 1456 DEP CLI 06/01/[address] [address]
--- NOTE | 2016-06-15 10:19 | HP ---
PATIENT: ABBEY WATSON MEDICAL RECORD: [id number] ACCOUNT: [id number] LOCATION:[facility] : 38 ADMISSION DATE: 06/01/16 HISTORY AND PHYSICAL EXAMINATION ADMITTING DIAGNOSES: 1. Unstable angina. 2. Coronary artery disease, status post 3-vessel PTCA stent, February and March. 3. Hypertension. 4. Hyperlipidemia. HISTORY OF PRESENT ILLNESS: Mr. Watson presents with 2 days of increasing chest pain, quite severe episodes of chest pain last night, status post 3-vessel PTCA stent in late February, early March. His first recurrence of chest pain he has had since then. His EKG, sinus bradycardia, but no acute ST-T abnormalities. PHYSICAL EXAMINATION: GENERAL APPEARANCE: Well-nourished, well-developed, appears stated age. Level of distress, comfortable. PSYCHIATRIC: Mental status, alert, normal affect. Orientation, oriented to time, place and person. EYES: Lids and conjunctiva, noninjected. No discharge, no pallor. ENT: Lips, teeth, gums, normal dentition. Oropharynx, no cyanosis, no pallor. NECK: Carotid arteries, bilateral normal upstroke, no bruits, no thrills. JUGULAR VEINS: No jugular venous pressure or distention. CERVICAL LYMPH NODES: Nontender, nonenlarged. THYROID: Not enlarged. Nontender. No nodules. LUNGS: Respiratory effort, unlabored. CHEST: Normal curvature. No thoracic deformity. No chest wall tenderness. Percussion, resonant. Auscultation, clear. No wheezes, no rales, no rhonchi. CARDIOVASCULAR: Precordial exam, nondisplaced. No heaves or pericardial thrills. Rate and rhythm, regular. Heart sounds, normal S1, normal S2. No S3, no gallop, no rub. Systolic murmur, not heard. Diastolic murmur, not heard. EXTREMITIES: No cyanosis, no edema. Peripheral pulses, full and equal in all extremities, except as noted. No bruits appreciated. ABDOMEN: Soft, nondistended. Normal aorta. No bruit. Nontender. No masses. Liver, nontender, no hepatomegaly. Spleen, nontender, no splenomegaly. MUSCULOSKELETAL: No joint tenderness. No joint swelling. No erythema. NEUROLOGICAL: Normal gait, normal strength, normal tone. SKIN: Warm and dry. REVIEW OF SYSTEMS: The patient reports easy bruising but reports no swollen glands. The patient reports no fever, no night sweats, no significant weight gain, no significant weight loss. No significant exercise tolerance. The patient reports no dry eyes, no irritation, no vision change. Patient reports no difficulty hearing and no ear pain. Patient reports no frequent nose bleeds or nose and sinus problems. Patient reports on arm pain on exertion. No shortness of breath while lying down. No history of heart murmur. Patient reports no cough, no wheezing or coughing up blood. Patient reports no abdominal pain, no vomiting. Normal appetite. No diarrhea and not vomiting blood. No nausea and no constipation. Patient reports no incontinence. No difficulty urinating. No hematuria. No increased frequency. Patient reports no muscle aches. No weakness, no arthralgias, no back pain. No swelling of the HISTORY AND PHYSICAL [id number] ABBEY WATSON extremities. Patient reports no abnormal mole, no jaundice, no rashes. Reports no loss of consciousness. No weakness and no numbness. No seizures, dizziness, or headaches. The patient reports no depression, no sleep disturbance, feeling safe in a relationship and no alcohol abuse. Patient reports on fatigue. Reports no runny nose or sinus pressure. No itching, no hives, and no frequent sneezing. OVERALL IMPRESSION: Recurrent chest pain compatible with angina in an unstable fashion in a gentleman with a past history of 3-vessel PTCA stent. We will proceed with repeat coronary angiography. Further care depends upon findings of the angiography. TRANSINT:[id number] Voice Confirmation ID: [id number] DOCUMENT ID: [id number] HOA HURTADO MD at 1019 CC: [id number] DICTATION DATE: 06/01/16 1308 [place] OPERATOR: 06/01/16 1332 DEP CLI 06/01/16 [id number] [place] [address]
== END ==
LOC: D.CATH 10:20 → D.ER 10:20 → EDSTATUS 19:56
PROVIDERS: Family Medicine
DX: I25.110 Atherosclerotic heart disease of native coronary artery with unstable angina pectoris (principal); R07.9 Chest pain, unspecified; K21.9 Gastro-esophageal reflux disease without esophagitis; I10 Essential (primary) hypertension; E78.5 Hyperlipidemia, unspecified
CPT/HCPCS: 93458; C9600

== ENCOUNTER 2018-06-14 09:33 | Emergency (ER) | payer MEDICARE, OTHER ==
[~2018-06-14] VITALS: Ht 175.3 cm; Wt 93.6 kg
[2018-06-14 09:36] VITALS: Ht 175.3 cm; Wt 93.6 kg
[2018-06-14] MEDS ORDERED: ZOVIRAX800 MG PO (09:39)
[2018-06-14] MEDS ORDERED: ZOVIRAX 5% CREAM5 GM TOPICAL (09:55)
[2018-06-14] MEDS ORDERED: GABAPENTIN100 MG PO (09:55)
[2018-06-14 11:00] VITALS: BP 140/78
== END 2018-06-14 11:01 | disposition home or self-care (01) ==
LOC: D.ER 09:33
DX: B02.31 Zoster conjunctivitis (principal)